=== PATIENT | female | born 1995 | race Caucasian/White ===

== ENCOUNTER 2020-06-20 17:41 | Emergency (ER) | payer BC, OTHER ==
[2020-06-20] MEDS ORDERED: Sodium Chloride 0.9% 10 ML Syringe FLUSH PRN (18:28)
[2020-06-20] MEDS ORDERED: Promethazine 25 MG in Sodium Chloride 0.9% 50 ML IV ONE (18:28)
[2020-06-20] MEDS ORDERED: Sodium Chloride 0.9% 1,000 ML IV STA (18:28)
--- NOTE | 2020-06-20 20:16 | EDM.PDOC ---
ED HPI GENERAL MEDICAL PROBLEM - General Chief Complaint: Gastrointestinal Problem Stated Complaint: 7 WKS PG/VOMITING Time Seen by Provider: 06/20/20 18:15 Source of Information: Reports: Patient, RN Notes Reviewed History Limitations: Reports: No Limitations - History of Present Illness INITIAL COMMENTS - FREE TEXT/NARRATIVE: Patient is a 25-year-old female presenting to the emergency department with complaints of nausea and vomiting. She is 7 weeks . States up until this point she has only had nausea, for which she has been taking Zofran. Last evening she started vomiting with her nausea as well. She took Zofran this morning and states that it did not help. She continued to vomit after the Zofran and states that she has not been able to keep down liquids or foods all day. She called and spoke with Dr. Fierro is her LEAD JAVASCRIPT ENGINEER, Dr. Elena was not in the office. She recommended she come to the ER. She denies any vaginal bleeding or cramping. She has no abdominal pain. Denies any dysuria. - Related Data Allergies Allergy/AdvReac Type Severity Reaction Status Date / Time tree nut Allergy Anaphylactic Verified 06/20/20 17:55 Shock Home Meds: Home Meds Promethazine [Phenergan] 25 mg PO Q6H PRN #15 tab 06/20/20 [Rx] Past Medical History - Past Health History Medical/Surgical History: Denies Medical/Surgical History - Infectious Disease History Infectious Disease History: Reports: None Social & Family History - Tobacco Use Tobacco Use Status *Q: Never Tobacco User ED ROS GENERAL - Review of Systems Review Of Systems: See Below Constitutional: Reports: No Symptoms. Denies: Fever, Chills, Weakness HEENT: Reports: No Symptoms Respiratory: Reports: No Symptoms Cardiovascular: Reports: No Symptoms, Palpitations GI/Abdominal: Reports: Nausea, Vomiting. Denies: Abdominal Pain, Diarrhea : Reports: No Symptoms. Denies: Pain Musculoskeletal: Reports: No Symptoms Skin: Reports: No Symptoms Neurological: Reports: No Symptoms Psychiatric: Reports: No Symptoms Hematologic/Lymphatic: Reports: No Symptoms Immunologic: Reports: No Symptoms ED EXAM, GI/ABD - Physical Exam Exam: See Below General Appearance: Alert, WD/WN, No Apparent Distress Respiratory/Chest: No Respiratory Distress, Lungs Clear, Normal Breath Sounds, No Accessory Muscle Use, Chest Non-Tender Cardiovascular: Normal Peripheral Pulses, Regular Rate, Rhythm, No Edema, No Gallop, No JVD, No Murmur, No Rub GI/Abdominal Exam: Normal Bowel Sounds, Soft, Non-Tender, No Organomegaly, No Distention, No Abnormal Bruit, No Mass, Pelvis Stable Neurological: Alert, Oriented, CN II-XII Intact, Normal Cognition, Normal Gait, Normal Reflexes, No Motor/Sensory Deficits Psychiatric: Normal Affect, Normal Mood Skin Exam: Warm, Dry, Intact, Normal Color, No Rash Course - Vital Signs Last Recorded V/S: Last Vital Signs Temp 97.9 F 06/20/20 17:49 Pulse 105 H 06/20/20 17:49 Resp 16 06/20/20 17:49 BP 133/82 06/20/20 17:49 Pulse Ox 97 06/20/20 17:49 - Orders/Labs/Meds Orders: Active Orders 24 hr Category Date Time Status Peripheral IV Insertion Adult [OM.PC] Stat Oth 06/20/20 18:28 Ordered Labs: Laboratory Tests 06/20/20 06/20/20 06/20/20 Range/Units 18:45 18:45 20:10 WBC 10.28 H (3.98-10.04) K/mm3 RBC 4.44 (3.98-5.22) M/mm3 Hgb 13.2 (11.2-15.7) gm/dl Hct 40.5 (34.1-44.9) % MCV 91.2 (79.4-94.8) fl MCH 29.7 (25.6-32.2) pg MCHC 32.6 (32.2-35.5) g/dl RDW Std Deviation 42.9 (36.4-46.3) fL Plt Count 320 (182-369) K/mm3 MPV 11.0 (9.4-12.3) fl Neut % (Auto) 74.1 H (34.0-71.1) % Lymph % (Auto) 17.1 L (19.3-51.7) % Christian % (Auto) 8.2 (4.7-12.5) % Eos % (Auto) 0.2 L (0.7-5.8) Baso % (Auto) 0.2 (0.1-1.2) % Neut # (Auto) 7.62 H (1.56-6.13) K/mm3 Lymph # (Auto) 1.76 (1.18-3.74) K/mm3 Christian # (Auto) 0.84 H (0.24-0.36) K/mm3 Eos # (Auto) 0.02 L (0.04-0.36) K/mm3 Baso # (Auto) 0.02 (0.01-0.08) K/mm3 Manual Slide Review Normal smear Sodium 136 (136-145) mEq/L Potassium 3.9 (3.5-5.1) mEq/L Chloride 101 (98-107) mEq/L Carbon Dioxide 24 (21-32) mEq/L Anion Gap 14.9 (5-15) BUN 7 (7-18) mg/dL Creatinine 0.9 (0.55-1.02) mg/dL Est Cr Clr Drug Dosing TNP Estimated GFR (MDRD) > 60 (>60) mL/min BUN/Creatinine Ratio 7.8 L (14-18) Glucose 75 (74-106) mg/dL Calcium 9.4 (8.5-10.1) mg/dL Magnesium 1.7 L (1.8-2.4) mg/dl Total Bilirubin 0.6 (0.2-1.0) mg/dL AST 20 (15-37) U/L ALT 30 (14-59) U/L Alkaline Phosphatase 54 (46-116) U/L C-Reactive Protein 0.6 (<1.0) mg/dL Total Protein 7.6 (6.4-8.2) g/dl Albumin 3.7 (3.4-5.0) g/dl Globulin 3.9 gm/dL Albumin/Globulin Ratio 1.0 (1-2) Urine Color Yellow (Yellow) Urine Appearance Cloudy H (Clear) Urine pH 7.0 (5.0-8.0) Ur Specific [place] 1.020 (1.005-1.030) Urine Protein Trace H (Negative) Urine Glucose (UA) Negative (Negative) Urine Ketones 4+ H (Negative) Urine Occult Blood Negative (Negative) Urine Nitrite Negative (Negative) Urine Bilirubin Negative (Negative) Urine Urobilinogen 0.2 (0.2-1.0) Ur Leukocyte Esterase Trace H (Negative) Urine RBC 0-5 (0-5) /hpf Urine WBC 0-5 (0-5) /hpf Ur Squamous Epith Cells 0-5 (0-5) /hpf Amorphous Sediment Many H (NOT SEEN) /hpf Urine Bacteria Few (FEW) /hpf Urine Mucus Not seen (FEW) /hpf Meds: Medications Discontinued Medications Generic Name Dose Route Start Last Admin Trade Name Freq PRN Reason Stop Dose Admin Sodium Chloride 1,000 mls @ 999 mls/hr 06/20/20 18:28 06/20/20 18:50 Normal Saline IV 06/20/20 19:28 999 mls/hr NOW STA Administration Promethazine HCl 25 mg/ Sodium 51 mls @ 100 mls/hr 06/20/20 18:28 06/20/20 18:55 Chloride IV 06/20/20 18:58 100 mls/hr ONETIME ONE Administration Sodium Chloride 10 ml 06/20/20 18:28 06/20/20 18:50 Saline Flush FLUSH 10 ml ASDIRECTED PRN Administration Keep Vein Open - Re-Assessments/Exams Free Text/Narrative Re-Assessment/Exam: Patient is a 25-year-old female 7 weeks presenting to the emergency department with complaints of nausea and vomiting. She had taken Zofran earlier in the day with little relief. Continues to vomiting time she eats or drinks anything. She has had no abnormal vaginal discharge, bleeding, or pelvic pain. Denies any abdominal pain. I have ordered CBC, CMP, and urinalysis. I will give her 1 L bolus of normal saline as well as Phenergan 25 mg IV. We will then have her drink some liquids and see if she is able to keep them down. 06/20/20 20:40 Patient is feeling much better with the medications given. She has been able to drink water with no recurrence of vomiting. Blood work is grossly unremarkable. There is no bacteria in her urine. We will discharge her home with a prescription for Phenergan and instructions to follow-up with her LEAD JAVASCRIPT ENGINEER. Discharge instructions document. Departure - Departure Time of Disposition: 20:41 Disposition: Home, Self-Care 01 Condition: Good Clinical Impression: Nausea and vomiting during - Discharge Information *PRESCRIPTION DRUG MONITORING PROGRAM REVIEWED*: No *COPY OF PRESCRIPTION DRUG MONITORING REPORT IN PATIENT DONTE: No Prescriptions: Promethazine [Phenergan] 25 mg PO Q6H PRN #15 tab PRN Reason: Nausea/Vomiting Instructions: Nausea and Vomiting, Adult, [id number] Referrals: Madelin Elena MD [Primary Care Provider] - Forms: ED Department Discharge Additional Instructions: You were seen in the emergency department today for nausea and vomiting during . Work-up included blood work and urinalysis with both of which were found to be normal. While in the ER, he received a liter of IV fluids and Phenergan for nausea. This did improve your nausea and you were able to drink liquids without difficulty. A prescription for Phen[place]gan has been sent to [facility]. Take this medication as prescribed. Do not take your Zofran at the same time that you are taking this medication. Recommend a bland diet for the next few days. Follow-up with Dr. Elena early next week for reevaluation. Return to the ER for any new or worsening symptoms of concern. Sepsis Event Note (ED) - Evaluation Sepsis Screening Result: No Definite Risk - My Orders Last 24 Hours: My Active Orders 06/20/20 18:28 Peripheral IV Insertion Adult [OM.PC] Stat - Assessment/Plan Last 24 Hours: My Active Orders 06/20/20 18:28 Peripheral IV Insertion Adult [OM.PC] Stat
== END 2020-06-20 21:05 | disposition home or self-care (01) ==
LOC: JD.ED 17:41
DX: O21.9 Vomiting of pregnancy, unspecified (principal); Z91.018 Allergy to other foods; Z3A.01 Less than 8 weeks gestation of pregnancy
CPT/HCPCS: 36415; 80053; 81001; 83735; 85025; 86140; 96365; 99284; J2550; J7030; 99283

== ENCOUNTER 2020-07-19 09:17 | Emergency (ER) | payer BC ==
[2020-07-19] MEDS ORDERED: Promethazine 25 MG in Sodium Chloride 0.9% 50 ML IV ONE (11:10)
[2020-07-19] MEDS ORDERED: Dextrose 5%-0.9% NaCl 1,000 ML IV SCH (11:11)
--- NOTE | 2020-07-19 11:15 | EDM.PDOC ---
ED HPI GENERAL MEDICAL PROBLEM - General Chief Complaint: Gastrointestinal Problem Stated Complaint: VOMITING/11 WKS PG Time Seen by Provider: 07/19/20 11:06 Source of Information: Reports: Patient, RN Notes Reviewed History Limitations: Reports: No Limitations - History of Present Illness INITIAL COMMENTS - FREE TEXT/NARRATIVE: Patient is a 25-year-old female who presents to the ED for evaluation of her vomiting in . She notes she is roughly 11-1/2 weeks , she is a G1, P0. Her DUAL RATE SUPERVISOR is Dr. Elena. She notes that she has been having issues with nausea and vomiting with this , she has been tried on Zofran, and Phenergan, she states that she has not been taking her Phenergan in a while as she has had a few days that where she felt really good. Since Tuesday however in the morning she has not been able to keep any food or fluids down by mouth. She was seen at [facility] roughly 4 days ago and given some IV fluids. She notes she has some generalized abdomen tenderness but attributes this to her excessive vomiting. She does not have any fevers or chills, cough or shortness of breath, or any diarrhea associated with this. Abdomen Pain Score (Numeric/FACES): 4 - Related Data Allergies Allergy/AdvReac Type Severity Reaction Status Date / Time tree nut Allergy Anaphylactic Verified 07/19/20 10:09 Shock Home Meds: Home Meds Promethazine [Phenergan] 25 mg PO Q6H PRN #15 tab 06/20/20 [Rx] Past Medical History DUAL RATE SUPERVISOR History: Reports: : 1 Para: 0 - Past Surgical History HEENT Surgical History: Reports: Oral Surgery Social & Family History - Tobacco Use Tobacco Use Status *Q: Never Tobacco User - Caffeine Use Caffeine Use: Reports: None - Recreational Drug Use Recreational Drug Use: No ED ROS GENERAL - Review of Systems Review Of Systems: Comprehensive ROS is negative, except as noted in HPI. ED EXAM - Physical Exam Exam: See Below Exam Limited By: No Limitations General Appearance: Alert, WD/WN, No Apparent Distress Respiratory/Chest: No Respiratory Distress, Lungs Clear, Normal Breath Sounds, No Accessory Muscle Use, Chest Non-Tender Cardiovascular: Normal Peripheral Pulses, Regular Rate, Rhythm, No Edema GI/Abdominal Exam: Normal Bowel Sounds, Soft, Non-Tender, No Distention, No Mass Heart Tones: Not [place] Movement: Not Appreciated Extremities: Normal Inspection, Normal Capillary Refill Neurological: Alert, Oriented, Normal Cognition, No Motor/Sensory Deficits Psychiatric: Normal Affect, Normal Mood Skin Exam: Warm, Dry, Intact, Normal Color, No Rash Course - Vital Signs Last Recorded V/S: Last Vital Signs Temp 97.4 F 07/19/20 10:09 Pulse 112 H 07/19/20 10:09 Resp 13 07/19/20 10:09 BP 115/78 07/19/20 10:09 Pulse Ox 100 07/19/20 10:09 - Orders/Labs/Meds Orders: Active Orders 24 hr Category Date Time Status Dextrose 5%-0.9% NaCl [Dextrose 5%-Normal Saline] 1,000 Med 07/19/20 11:11 Active ml IV ASDIRECTED Medication Orders Dextrose/Sodium Chloride (Dextrose 5%-Normal Saline) 1,000 mls @ 999 mls/hr IV ASDIRECTED DEJAH Last Admin: 07/19/20 11:22 Dose: 999 mls/hr Documented by: MATT Meds: Medications Generic Name Dose Route Start Last Admin Trade Name Freq PRN Reason Stop Dose Admin Dextrose/Sodium Chloride 1,000 mls @ 999 mls/hr 07/19/20 11:11 07/19/20 11:22 Dextrose 5%-Normal Saline IV 999 mls/hr ASDIRECTED [facility] Administration Discontinued Medications Generic Name Dose Route Start Last Admin Trade Name Freq PRN Reason Stop Dose Admin Promethazine HCl 25 mg/ Sodium 51 mls @ 100 mls/hr 07/19/20 11:10 07/19/20 11:27 Chloride IV 07/19/20 11:40 100 mls/hr ONETIME ONE Administration - Re-Assessments/Exams Free Text/Narrative Re-Assessment/Exam: 07/19/20 11:13 Patient presents to the ED with her and vomiting, likely suffering from hyperemesis gravidarum. We will get her some IV fluids, and nausea meds she states that she had labs taken on Tuesday, so she would not like labs repeated at today's visit. I did caution her that she could be overly dehydrated and this would help, she understands this but would really not like labs repeated at this time. Patient still has moist mucous membranes, and her blood pressure was good at time of triage so we will hold off on labs. 07/19/20 12:11 The patient is feeling better after the fluids and Phenergan, we will discharge her home after her bag of fluids has been completed. Departure - Departure Time of Disposition: 12:12 Disposition: Home, Self-Care 01 Condition: Good Clinical Impression: Nausea and vomiting during - Discharge Information *PRESCRIPTION DRUG MONITORING PROGRAM REVIEWED*: No *COPY OF PRESCRIPTION DRUG MONITORING REPORT IN PATIENT DONTE: No Instructions: Hyperemesis Gravidarum Referrals: Madelin Elena MD [Primary Care Provider] - Forms: ED Department Discharge Additional Instructions: You were seen in the ER for your nausea and vomiting in . You were given IV fluids, and some IV medications, this seemed to help relieve most of your nausea and vomiting. You reported that you felt better after the bag of fluids. Recommend that you take your Phenergan (promethazine) as directed by your DUAL RATE SUPERVISOR, on a daily basis until your nausea gets better. Please consult with Dr. Elena, if you are not able to take the pill version of this medication as there is a topical version you can use on your wrists for nausea management. If this makes you too sleepy, there are other options for nausea control. Recommend you try to stick to a clear liquid/bland diet for the next 24 to 48 hours and then advance your diet as tolerated, to also help relieve some of the nausea and vomiting. Please follow-up with your DUAL RATE SUPERVISOR at your next scheduled appointment. Please return to the ER at any time if symptoms change or worsen. Sepsis Event Note (ED) - Evaluation Sepsis Screening Result: No Definite Risk - Focused Exam Vital Signs: Vital Signs Temp Pulse Resp BP Pulse Ox 07/19/20 10:09 97.4 F 112 H 13 115/78 100 - My Orders Last 24 Hours: My Active Orders 07/19/20 11:11 Dextrose 5%-0.9% NaCl [Dextrose 5%-Normal Saline] 1,000 ml IV ASDIRECTED - Assessment/Plan Last 24 Hours: My Active Orders 07/19/20 11:11 Dextrose 5%-0.9% NaCl [Dextrose 5%-Normal Saline] 1,000 ml IV ASDIRECTED
== END 2020-07-19 13:15 | disposition home or self-care (01) ==
LOC: JD.ED 09:17
DX: O21.9 Vomiting of pregnancy, unspecified (principal); Z3A.11 11 weeks gestation of pregnancy; Z91.018 Allergy to other foods
CPT/HCPCS: 96365; 99283; J2550; J7042

== ENCOUNTER 2021-02-03 02:57 | Inpatient (IN) | payer BC ==
[2021-02-03] MEDS ORDERED: Nalbuphine 10 MG/1 ML Vial IVPUSH PRN (03:27)
[2021-02-03] MEDS ORDERED: Sodium Chloride 0.9% 10 ML Syringe FLUSH PRN (03:27)
[2021-02-03] MEDS ORDERED: Oxytocin/Lactated Ringers 10 UNIT/1,000 ML BAG IV SCH ×2 (03:30→14:30)
--- NOTE | 2021-02-03 03:30 | PCM.LDHP ---
L&D History of Present Illness - General Date of Service: 02/03/21 Admit Problem/Dx: Patient Status Order with Admit Dx/Problem 02/03/21 03:27 Patient Status [ADT] Routine Admission Diagnosis/Problem Admission Diagnosis/Problem Normal labor Source of Information: Patient History Limitations: Reports: No Limitations - History of Present Illness Introduction:: Patient is a 25 y/o at 39 6/7 wks who presents in labor. Contractions started early in the AM hours. 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: Polycystic Ovaries, : 1 Para: 0 LMP (Approximate): Psychiatric History: Reports: Anxiety - Past Surgical History HEENT Surgical History: Reports: Oral Surgery Social & Family History - Tobacco Use Tobacco Use Status *Q: Never Tobacco User - Caffeine Use Caffeine Use: Reports: None - Alcohol Use Alcohol Use History: No - Recreational Drug Use Recreational Drug Use: No H&P Review of Systems - Review of Systems: Review Of Systems: See Below General: Reports: No Symptoms Pulmonary: Reports: No Symptoms Cardiovascular: Reports: No Symptoms Gastrointestinal: Reports: Abdominal Pain Genitourinary: Reports: No Symptoms Musculoskeletal: Reports: No Symptoms Psychiatric: Reports: No Symptoms Neurological: Reports: No Symptoms L&D Exam - Exam Exam: See Below - OB Specific Contraction Intensity: Moderate to Strong Movement: Active Heart Tones: Present Heart Tones per Min: 120 Heart Rate (FHR) Variability: Moderate (6-25 bpm) Presentation: Vertex - Mcpherson Score Mcpherson Score Cervix Position: Anterior Mcpherson Score Consistency: Soft Mcpherson Score Effacement: >80% Mcpherson Score Dilation: > 5 cm Mcpherson Score 's Station: -1 ,0 Mcpherson Score Total: 12 - Exam General: Alert, Oriented, Cooperative Lungs: Clear to Auscultation, Normal Respiratory Effort Cardiovascular: Regular Rate, Regular Rhythm GI/Abdominal Exam: Soft, Non-Tender Genitourinary: Normal external exam Extremities: Normal Inspection Skin: Warm, Dry, Intact - Patient Data Result Diagrams: 02/03/21 04:10 - Problem List (1) 39 weeks gestation of SNOMED Code(s): 12925194 ICD Code: Z3A.39 - 39 WEEKS GESTATION OF Status: Acute Current Visit: Yes (2) Normal labor SNOMED Code(s): 44119160 ICD Code: O80 - ENCOUNTER FOR FULL-TERM UNCOMPLICATED DELIVERY; Z37.9 - OUTCOME OF DELIVERY, UNSPECIFIED Status: Acute Current Visit: Yes Problem List Initiated/Reviewed/Updated: Yes Orders Last 24hrs: Active Orders 24 hr Category Date Time Status Patient Status [ADT] Routine ADT 02/03/21 03:27 Ordered Activity as Tolerated [RC] PFP Care 02/03/21 03:27 Ordered Communication Order [RC] ASDIRECTED Care 02/03/21 03:27 Ordered Heart Tones [RC] ASDIRECTED Care 02/03/21 03:27 Ordered Non Stress Test [RC] PER UNIT ROUTINE Care 02/03/21 03:27 Ordered Notify Provider [RC] PFP Care 02/03/21 03:27 Ordered Notify Provider [RC] PRN Care 02/03/21 03:27 Ordered Peripheral IV Care [RC] . DIRECTED Care 02/03/21 03:27 Ordered Vital Signs [RC] PER UNIT ROUTINE Care 02/03/21 03:27 Ordered Regular Diet [DIET] Diet 02/03/21 Breakfast Ordered CBC W/O DIFF,HEMOGRAM [HEME] Routine Lab 02/03/21 03:27 Ordered CORONAVIRUS COVID-19 VAISHALI [MOLEC] Stat Lab 02/03/21 03:28 Ordered HEP C VIRUS AB [REF] Routine Lab 02/03/21 03:27 Ordered RAPID PLASMA REAGIN,RPR [CHEM] Routine Lab 02/03/21 03:27 Ordered TYPE AND SCREEN [BBK] Routine Lab 02/03/21 03:27 Ordered Lactated Ringers [Ringers, Lactated] 1,000 ml Med 02/03/21 03:30 Ordered IV ASDIRECTED Nalbuphine [Nubain] Med 02/03/21 03:27 Ordered 10 mg IVPUSH Q2H PRN Ondansetron [Zofran] Med 02/03/21 03:27 Ordered 4 mg IVPUSH Q4H PRN Oxytocin/Lactated Ringers [Pitocin in LR 10 Units/1,000 Med 02/03/21 03:30 Ordered ML] 10 unit in 1,000 ml IV .CONTINUOUS Sodium Chloride 0.9% [Saline Flush] Med 02/03/21 03:27 Ordered 10 ml FLUSH ASDIRECTED PRN Electronic Heart Tones Ext w TOCO [WOMSER] Oth 02/03/21 03:27 Ordered Routine Electronic Heart Tones Internal [WOMSER] Per Unit Ot 02/03/21 03:27 Ordered Routine Peripheral IV Insertion Adult [OM.PC] Routine Oth 02/03/21 03:27 Ordered Resuscitation Status Routine Resus Stat 02/03/21 03:27 Ordered Assessment/Plan Comment:: * Labs to be done * GBS negative * Pain management per patient preference * Anticipate
[2021-02-03] MEDS: Ondansetron 4 MG/2 ML SDV IVPUSH PRN ×2 (04:23→08:28)
[2021-02-03] MEDS: Lactated Ringers 1,000 ML IV SCH ×3 (09:00→10:31)
[2021-02-03] MEDS ORDERED: ePHEDrine 50 MG/ML SDV IVPUSH PRN (09:13)
[2021-02-03] MEDS ORDERED: Bupivacaine/fentaNYL/NS 100 ML Bag EPIDUR PRN (09:13)
[2021-02-03] MEDS ORDERED: fentaNYL 100 MCG/2 ML SDV EPIDUR PRN (09:13)
[2021-02-03] MEDS ORDERED: diphenhydrAMINE 50 MG/ML SDV IVPUSH PRN (09:13)
--- NOTE | 2021-02-03 09:17 | PCM.PREANE ---
Preanesthetic Assessment - Procedure Proposed Procedure: Labor epidural - Anesthesia/Transfusion/Family Hx Anesthesia History: Prior Anesthesia Reaction Type of Anesthesia Reaction: Excessive Nausea/Vomiting Family History of Anesthesia Reaction: No Transfusion History: No Prior Transfusion(s) Intubation History: Unknown - Review of Systems General: No Symptoms Pulmonary: No Symptoms Cardiovascular: No Symptoms Gastrointestinal: Abdominal Pain (uterine contractons), Nausea, Vomiting Neurological: No Symptoms Other: Reports: Liver Problems (hyperplasia of liver) - Physical Assessment NPO Status Date: 02/03/21 NPO Status Time: 07:00 Vital Signs: Last Vital Signs Temp 98.2 F 02/03/21 03:27 Pulse 119 H 02/03/21 03:27 Resp 14 02/03/21 03:27 BP 121/84 02/03/21 03:27 Pulse Ox 99 02/03/21 03:27 Height: 1.75 m Weight: 84.323 kg ASA Class: 2 Mental Status: Alert & Oriented x3 Airway Class: Mallampati = 2 Dentition: Reports: Normal Dentition, Caries Thyro-Mental Finger Breadths: 3 Mouth Opening Finger Breadths: 3 ROM/Head Extension: Full Lungs: Clear to Auscultation, Normal Respiratory Effort Cardiovascular: Regular Rate, Regular Rhythm - Lab Values: Laboratory Last Values WBC 14.11 K/mm3 (3.98-10.04) H 02/03/21 04:10 RBC 3.80 M/mm3 (3.98-5.22) L 02/03/21 04:10 Hgb 11.4 gm/dl (11.2-15.7) D 02/03/21 04:10 Hct 34.8 % (34.1-44.9) 02/03/21 04:10 MCV 91.6 fl (79.4-94.8) 02/03/21 04:10 MCH 30.0 pg (25.6-32.2) 02/03/21 04:10 MCHC 32.8 g/dl (32.2-35.5) 02/03/21 04:10 RDW Std Deviation 46.7 fL (36.4-46.3) H 02/03/21 04:10 Plt Count 358 K/mm3 (182-369) 02/03/21 04:10 MPV 10.7 fl (9.4-12.3) 02/03/21 04:10 SARS-CoV-2 RNA (VAISHALI) Negative (NEGATIVE) 02/03/21 03:36 Blood Type O POSITIVE 02/03/21 04:10 Gel Antibody Screen Negative 02/03/21 04:10 - Allergies Allergies/Adverse Reactions: Allergies Allergy/AdvReac Type Severity Reaction Status Date / Time peanut Allergy Anaphylactic Verified 02/03/21 04:48 Shock tree nut Allergy Anaphylactic Verified 02/03/21 04:48 Shock - Blood Blood Available: No Product(s) Available: None - Anesthesia Plan Pre-Op Medication Ordered: None - Acknowledgements Anesthesia Type Planned: Epidural Pt an Appropriate Candidate for the Planned Anesthesia: Yes Alternatives and Risks of Anesthesia Discussed w Pt/Guardian: Yes Pt/Guardian Understands and Agrees with Anesthesia Plan: Yes PreAnesthesia Questionnaire - Past Health History Medical/Surgical History: Denies Medical/Surgical History Gastrointestinal History: Reports: GERD, Other (See Below) Other Gastrointestinal History: Gallbladder polyp, Focal nodular hyperplasia of liver 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: 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, Psychiatric History: Reports: Anxiety Hematologic History: Reports: Anemia - Infectious Disease History Infectious Disease History: Reports: None - Past Surgical History HEENT Surgical History: Reports: Oral Surgery - SUBSTANCE USE Tobacco Use Status *Q: Never Tobacco User Tobacco Use Within Last Twelve Months: No Second Hand Smoke Exposure: No Days Per Week of Alcohol Use: 0 Number of Drinks Per Day: 0 Total Drinks Per Week: 0 Recreational Drug Use History: No - HOME MEDS Home Medications: Home Meds Ferrous Sulfate [Iron] 325 mg PO DAILY 02/03/21 [History] No122/Iron/Folic Acid [ Multi Tablet] 1 each PO DAILY 02/03/21 [History] - CURRENT (IN HOUSE) MEDS Current Meds: Current Medications Oxytocin/Lactated Ringer's (Pitocin In Lr 10 Units/1,000 Ml) 10 unit in 1,000 mls @ 500 mls/hr IV .CONTINUOUS DEJAH Lactated Ringer's (Ringers, Lactated) 1,000 mls @ 100 mls/hr IV ASDIRECTED DEJAH Nalbuphine HCl (Nalbuphine 10 Mg/1 Ml Vial) 10 mg IVPUSH Q2H PRN PRN Reason: Pain Ondansetron HCl (Ondansetron 4 Mg/2 Ml Sdv) 4 mg IVPUSH Q4H PRN PRN Reason: Nausea/Vomiting Last Admin: 02/03/21 08:28 Dose: 4 mg Documented by: Sodium Chloride (Sodium Chloride 0.9% 10 Ml Syringe) 10 ml FLUSH ASDIRECTED PRN PRN Reason: Keep Vein Open
[2021-02-03] MEDS ORDERED: Bupivacaine 0.25% 10 ML SDV ONE (12:00)
[2021-02-03] MEDS ORDERED: Misoprostol 200 MCG Tab ONE (15:38)
--- NOTE | 2021-02-03 16:56 | PCM.DEL ---
L & D Note - General Info Date of Service: 02/03/21 - Delivery Note Labor: Spontaneous Delivery Outcome: Livebirth Delivery Method: Spontaneous Vaginal Delivery-Single Delivery Mode: Spontaneous Presentation: Left Occiput Anterior (JUNI) Nuchal Cord: Present (tight not reduced ) Anesthesia Type: Epidural Amniotic Fluid Description: Clear Episiotomy Type: None Laceration: 2nd Degree Suture type: Vicryl Suture size: 2-0 Placenta: Intact (Accessory lobe noted ), Spontaneous Estimated Blood Loss: 300 [place]: Bulb Syringe, Stimulated, Warmed, [place] Used Delivery Comments (Free Text/Narrative):: Patient found to be complete and began pushing. With maternal pushing effort head delivered from JUNI presentation. Tight nuchal present and so not reduced. With gentle downward traction shoulders and body delivered. Infant placed on maternal abdomen. Cord clamped and cut. Cord blood obtained. Placenta allowed time to separate and expelled intact. Inspection showed accessory lobe. Evaluation of perineum showed a 2nd degree laceration repaired with a 2-0 Vicryl - General Info Date of Service: 02/03/21 - Patient Data Vitals - Most Recent: Last Vital Signs Temp 36.8 C 02/03/21 03:27 Pulse 119 H 02/03/21 03:27 Resp 14 02/03/21 03:27 BP 121/84 02/03/21 03:27 Pulse Ox 99 02/03/21 03:27 Weight - Most Recent: 84.323 kg I&O - Last 24 Hours: Intake & Output 02/03/21 02/03/21 02/03/21 06:59 14:59 22:59 Intake Total 240 Balance 240 - Exam Urinary Catheter Total Time: 0Days 0Hours - Problem List & Annotations (1) 39 weeks gestation of SNOMED Code(s): 03737640 Code(s): Z3A.39 - 39 WEEKS GESTATION OF Status: Acute Current Visit: Yes (2) Normal labor SNOMED Code(s): 18914832 Code(s): O80 - ENCOUNTER FOR FULL-TERM UNCOMPLICATED DELIVERY; Z37.9 - OUTCOME OF DELIVERY, UNSPECIFIED Status: Acute Current Visit: Yes (3) Vaginal delivery SNOMED Code(s): 491360411 Code(s): O80 - ENCOUNTER FOR FULL-TERM UNCOMPLICATED DELIVERY Status: Acute Current Visit: Yes - Problem List Review Problem List Initiated/Reviewed/Updated: Yes - My Orders Last 24 Hours: My Active Orders 02/03/21 03:27 Patient Status [ADT] Routine Activity as Tolerated [RC] PFP Communication Order [RC] ASDIRECTED Notify Provider [RC] PFP Notify Provider [RC] PRN Nalbuphine [Nubain] 10 mg IVPUSH Q2H PRN Ondansetron [Zofran] 4 mg IVPUSH Q4H PRN Sodium Chloride 0.9% [Saline Flush] 10 ml FLUSH ASDIRECTED PRN Electronic Heart Tones Ext w TOCO [WOMSER] Routine Electronic Heart Tones Internal [WOMSER] Per Unit Routine Peripheral IV Insertion Adult [OM.PC] Routine Resuscitation Status Routine 02/03/21 03:30 Lactated Ringers [Ringers, Lactated] 1,000 ml IV ASDIRECTED Oxytocin/Lactated Ringers [Pitocin in LR 10 Units/1,000 ML] 10 unit in 1,000 ml IV .CONTINUOUS 02/03/21 04:10 HEP C VIRUS AB [REF] Routine RAPID PLASMA REAGIN,RPR [CHEM] Routine 02/03/21 Breakfast Regular Diet [DIET] 02/03/21 14:30 Oxytocin/Lactated Ringers [Pitocin in LR 10 Units/1,000 ML] 10 unit in 1,000 ml IV TITRATE 02/03/21 16:55 Patient Status Manage Transfer [TRANSFER] Routine - Assessment Assessment:: PPD#0 - Plan Plan:: * Routine cares * breast feeding * Discharge home in 1-2 days
[2021-02-03] MEDS ORDERED: Acetaminophen 325 MG Tab PO PRN (17:33)
[2021-02-03] MEDS ORDERED: Witch Hazel Medicated Pads 40/Jar TOP PRN (17:33)
[2021-02-03] MEDS ORDERED: Benzocaine/Menthol 20%-0.5% Spray 56 GM Canister TOP PRN (17:33)
[2021-02-03] MEDS: Ibuprofen 600 MG Tab PO PRN (18:55)
[2021-02-04] MEDS: Ibuprofen 600 MG Tab PO PRN ×3 (03:57→18:52)
--- NOTE | 2021-02-04 06:29 | PCM.PNPP ---
- General Info Date of Service: 02/04/21 Functional Status: Reports: Pain Controlled, Tolerating Diet, Ambulating, Urinating - Review of Systems General: Reports: No Symptoms Pulmonary: Reports: No Symptoms Cardiovascular: Reports: No Symptoms Gastrointestinal: Reports: No Symptoms Genitourinary: Reports: No Symptoms Musculoskeletal: Reports: No Symptoms - Patient Data Vital Signs - Most Recent: Last Vital Signs Temp 36.6 C 02/04/21 03:57 Pulse 85 02/04/21 03:57 Resp 14 02/03/21 19:49 BP 112/65 02/04/21 03:57 Pulse Ox 97 02/04/21 03:57 Weight - Most Recent: 84.323 kg I&O - Last 24 Hours: Intake & Output 02/03/21 02/03/21 02/04/21 14:59 22:59 06:59 Intake Total 240 3300 Output Total 325 300 Balance -85 3000 Lab Results - Last 24 Hours: Laboratory Results - last 24 hr 02/03/21 Range/Units 04:10 RPR Non-reactive (NONREACTIVE) Med Orders - Current: Current Medications Acetaminophen (Acetaminophen 325 Mg Tab) 650 mg PO Q4H PRN PRN Reason: mild pain or fever Benzocaine/Menthol (Benzocaine/Menthol 20%-0.5% [place] 56 Gm Canister) 0 gm TOP ASDIRECTED PRN PRN Reason: Perineal Comfort Measure Last Admin: 02/03/21 17:58 Dose: 1 canister Documented by: Docusate Sodium (Docusate Sodium 100 Mg Cap) 100 mg PO BID PRN PRN Reason: Constipation Ibuprofen (Ibuprofen 600 Mg Tab) 600 mg PO Q4H PRN PRN Reason: Mild pain or fever Last Admin: 02/04/21 03:57 Dose: 600 mg Documented by: Иван Carey (Иван Carey Medicated Pads 40/Jar) 1 pad TOP ASDIRECTED PRN PRN Reason: Perineal Comfort Measure Last Admin: 02/03/21 17:58 Dose: 1 container Documented by: Discontinued Medications Bupivacaine HCl (Bupivacaine 0.25% 10 Ml Sdv) 10 ml .ROUTE .STK-MED ONE Stop: 02/03/21 12:01 Diphenhydramine HCl (Diphenhydramine 50 Mg/Ml Sdv) 25 mg IVPUSH Q6H PRN PRN Reason: pruritis Ephedrine Sulfate (Ephedrine 50 Mg/Ml Sdv) 5 mg IVPUSH ASDIRECTED PRN PRN Reason: Hypotension Fentanyl (Fentanyl 100 Mcg/2 Ml Sdv) 100 mcg EPIDUR Q3H PRN PRN Reason: Pain Last Admin: 02/03/21 09:19 Dose: 100 mcg Documented by: Fentanyl/Bupivacaine HCl (Bupivacaine/Fentanyl/Ns 100 Ml Bag) 100 ml EPIDUR ASDIRECTED PRN PRN Reason: Pain Last Admin: 02/03/21 09:18 Dose: 100 ml Documented by: Oxytocin/Lactated Ringer's (Pitocin In Lr 10 Units/1,000 Ml) 10 unit in 1,000 mls @ 500 mls/hr IV .CONTINUOUS DJEAH Lactated Ringer's (Ringers, Lactated) 1,000 mls @ 100 mls/hr IV ASDIRECTED DEJAH Last Admin: 02/03/21 10:31 Dose: 100 mls/hr Documented by: Oxytocin/Lactated Ringer's (Pitocin In Lr 10 Units/1,000 Ml) 10 unit in 1,000 mls @ 12 mls/hr IV TITRATE DEJAH; Protocol Last Admin: 02/03/21 14:32 Dose: 2 munits/min, 12 mls/hr Documented by: Misoprostol (Misoprostol 200 Mcg Tab) Confirm Administered Dose 600 mcg .ROUTE .[facility]-MED ONE Stop: 02/03/21 15:39 Last Admin: 02/03/21 15:38 Dose: 600 mcg Documented by: Nalbuphine HCl (Nalbuphine 10 Mg/1 Ml Vial) 10 mg IVPUSH Q2H PRN PRN Reason: Pain Ondansetron HCl (Ondansetron 4 Mg/2 Ml Sdv) 4 mg IVPUSH Q4H PRN PRN Reason: Nausea/Vomiting Last Admin: 02/03/21 08:28 Dose: 4 mg Documented by: Sodium Chloride (Sodium Chloride 0.9% 10 Ml Syringe) 10 ml FLUSH ASDIRECTED PRN PRN Reason: Keep Vein Open - Interaction Infant Disposition, : in Room with Family Interaction: Holding Infant Infant Feeding: Attempted ; Nursed Fair/Poor Support Person: , Mother - Recovery Exam Fundal Tone: Firm Fundal Level: 1 Fingerbreadths Below Umbilicus Fundal Placement: Midline Lochia Amount: Small Lochia Color: Rubra/Red Perineum Description: Other (see below) Other Perinuem Description: 2nd degree with degree Bladder Status: Voiding - Exam General: Alert, Oriented, Cooperative GI/Abdominal Exam: Soft, Non-Tender - Problem List & Annotations (1) 39 weeks gestation of SNOMED Code(s): 55747926 Code(s): Z3A.39 - 39 WEEKS GESTATION OF Status: Acute Current Visit: Yes (2) Normal labor SNOMED Code(s): 79638356 Code(s): O80 - ENCOUNTER FOR FULL-TERM UNCOMPLICATED DELIVERY; Z37.9 - OUTCOME OF DELIVERY, UNSPECIFIED Status: Acute Current Visit: Yes (3) Vaginal delivery SNOMED Code(s): 662671041 Code(s): O80 - ENCOUNTER FOR FULL-TERM UNCOMPLICATED DELIVERY Status: Acute Current Visit: Yes - Problem List Review Problem List Initiated/Reviewed/Updated: Yes - My Orders Last 24 Hours: My Active Orders 02/03/21 Dinner Regular Diet [DIET] 02/03/21 17:33 Acetaminophen [TylenoL] 650 mg PO Q4H PRN Benzocaine/Menthol [Dermoplast Pain Relief [place]] See Dose Instructions TOP ASDIRECTED PRN Docusate Sodium [Colace] 100 mg PO BID PRN Ibuprofen [Motrin] 600 mg PO Q4H PRN witch Jie [Tucks] 1 pad TOP ASDIRECTED PRN Heat Therapy [OM.PC] PRN 02/03/21 17:33 Activity as Tolerated [RC] PER UNIT ROUTINE Vital Signs [RC] 03,,15,21 Assess Lochia [WOMSER] Per Unit Routine Assess Uterine Involution [WOMSER] Per Unit Routine Breast Pump [WOMSER] Per Unit Routine Ice Therapy [OM.PC] Per Unit Routine Perineal Care [OM.PC] Per Unit Routine Peripheral IV Discontinue [OM.PC] Routine Sitz Bath [OM.PC] Per Unit Routine 02/04/21 17:33 Heat Therapy [OM.PC] PRN - Assessment Assessment:: PPD#1 - Plan Plan:: * Routine cares * breast feeding * Discharge home tomorrow
--- NOTE | 2021-02-04 07:29 | PCM48HPAN ---
Post Anesthesia Note - EVALUATION WITHIN 48HRS OF ANESTHETIC Vital Signs in Normal Range: Yes Patient Participated in Evaluation: Yes Respiratory Function Stable: Yes Airway Patent: Yes Cardiovascular Function Stable: Yes Hydration Status Stable: Yes Pain Control Satisfactory: Yes Nausea and Vomiting Control Satisfactory: Yes Mental Status Recovered: Yes Vital Signs: Last Vital Signs Temp 97.9 F 02/04/21 03:57 Pulse 85 02/04/21 03:57 Resp 14 02/03/21 19:49 BP 112/65 02/04/21 03:57 Pulse Ox 97 02/04/21 03:57 - COMMENTS/OBSERVATIONS Free Text/Narrative:: resting. no complaints
[2021-02-04] MEDS: Docusate Sodium 100 MG Cap PO PRN (18:52)
[2021-02-05] MEDS: Ibuprofen 600 MG Tab PO PRN (06:49)
--- NOTE | 2021-02-05 07:28 | PCM.PNPP ---
- General Info Date of Service: 02/05/21 Functional Status: Reports: Pain Controlled, Tolerating Diet, Ambulating, Urinating - Review of Systems General: Reports: No Symptoms Pulmonary: Reports: No Symptoms Cardiovascular: Reports: No Symptoms Gastrointestinal: Reports: No Symptoms Genitourinary: Reports: No Symptoms Musculoskeletal: Reports: No Symptoms - Patient Data Vital Signs - Most Recent: Last Vital Signs Temp 36.6 C 02/05/21 01:58 Pulse 87 02/05/21 01:58 Resp 14 02/05/21 01:58 BP 112/65 02/05/21 01:58 Pulse Ox 95 02/05/21 01:58 Weight - Most Recent: 84.323 kg Lab Results - Last 24 Hours: Laboratory Results - last 24 hr 02/03/21 Range/Units 04:10 Hepatitis C Antibody <0.1 (0.0-0.9) s/co ratio Med Orders - Current: Current Medications Acetaminophen (Acetaminophen 325 Mg Tab) 650 mg PO Q4H PRN PRN Reason: mild pain or fever Benzocaine/Menthol (Benzocaine/Menthol 20%-0.5% [place] 56 Gm Canister) 0 gm TOP ASDIRECTED PRN PRN Reason: Perineal Comfort Measure Last Admin: 02/03/21 17:58 Dose: 1 canister Documented by: Docusate Sodium (Docusate Sodium 100 Mg Cap) 100 mg PO BID PRN PRN Reason: Constipation Last Admin: 02/04/21 18:52 Dose: 100 mg Documented by: Ibuprofen (Ibuprofen 600 Mg Tab) 600 mg PO Q4H PRN PRN Reason: Mild pain or fever Last Admin: 02/05/21 06:49 Dose: 600 mg Documented by: Иван Carey (Иван Carey Medicated Pads 40/Jar) 1 pad TOP ASDIRECTED PRN PRN Reason: Perineal Comfort Measure Last Admin: 02/03/21 17:58 Dose: 1 container Documented by: Discontinued Medications Bupivacaine HCl (Bupivacaine 0.25% 10 Ml Sdv) 10 ml .ROUTE .STK-MED ONE Stop: 02/03/21 12:01 Diphenhydramine HCl (Diphenhydramine 50 Mg/Ml Sdv) 25 mg IVPUSH Q6H PRN PRN Reason: pruritis Ephedrine Sulfate (Ephedrine 50 Mg/Ml Sdv) 5 mg IVPUSH ASDIRECTED PRN PRN Reason: Hypotension Fentanyl (Fentanyl 100 Mcg/2 Ml Sdv) 100 mcg EPIDUR Q3H PRN PRN Reason: Pain Last Admin: 02/03/21 09:19 Dose: 100 mcg Documented by: Fentanyl/Bupivacaine HCl (Bupivacaine/Fentanyl/Ns 100 Ml Bag) 100 ml EPIDUR ASDIRECTED PRN PRN Reason: Pain Last Admin: 02/03/21 09:18 Dose: 100 ml Documented by: Oxytocin/Lactated Ringer's (Pitocin In Lr 10 Units/1,000 Ml) 10 unit in 1,000 mls @ 500 mls/hr IV .CONTINUOUS DEJAH Lactated Ringer's (Ringers, Lactated) 1,000 mls @ 100 mls/hr IV ASDIRECTED DEJAH Last Admin: 02/03/21 10:31 Dose: 100 mls/hr Documented by: Oxytocin/Lactated Ringer's (Pitocin In Lr 10 Units/1,000 Ml) 10 unit in 1,000 mls @ 12 mls/hr IV TITRATE DEJAH; Protocol Last Admin: 02/03/21 14:32 Dose: 2 munits/min, 12 mls/hr Documented by: Misoprostol (Misoprostol 200 Mcg Tab) Confirm Administered Dose 600 mcg .ROUTE .[facility] ONE Stop: 02/03/21 15:39 Last Admin: 02/03/21 15:38 Dose: 600 mcg Documented by: Nalbuphine HCl (Nalbuphine 10 Mg/1 Ml Vial) 10 mg IVPUSH Q2H PRN PRN Reason: Pain Ondansetron HCl (Ondansetron 4 Mg/2 Ml Sdv) 4 mg IVPUSH Q4H PRN PRN Reason: Nausea/Vomiting Last Admin: 02/03/21 08:28 Dose: 4 mg Documented by: Sodium Chloride (Sodium Chloride 0.9% 10 Ml Syringe) 10 ml FLUSH ASDIRECTED PRN PRN Reason: Keep Vein Open - Interaction Disposition, : Docena in Room with Family Infant Interaction: Holding Feeding: Attempted ; Nursed Fair/Poor Support Person: , Mother - Recovery Exam Fundal Tone: Firm Fundal Level: 2 Fingerbreadths Below Umbilicus Fundal Placement: Midline Lochia Amount: Small Lochia Color: Rubra/Red Perineum Description: Other (see below) Other Perinuem Description: 2nd degree lac with repair Episiotomy/Laceration: Approximated Bladder Status: Voiding - Exam General: Alert, Oriented, Cooperative GI/Abdominal Exam: Soft, Non-Tender - Problem List & Annotations (1) 39 weeks gestation of SNOMED Code(s): 86409253 Code(s): Z3A.39 - 39 WEEKS GESTATION OF Status: Acute Current Visit: Yes (2) Normal labor SNOMED Code(s): 45592835 Code(s): O80 - ENCOUNTER FOR FULL-TERM UNCOMPLICATED DELIVERY; Z37.9 - OUTCOME OF DELIVERY, UNSPECIFIED Status: Acute Current Visit: Yes (3) Vaginal delivery SNOMED Code(s): 915473608 Code(s): O80 - ENCOUNTER FOR FULL-TERM UNCOMPLICATED DELIVERY Status: Acute Current Visit: Yes - Problem List Review Problem List Initiated/Reviewed/Updated: Yes - My Orders Last 24 Hours: My Active Orders 02/04/21 17:33 Heat Therapy [OM.PC] PRN 02/05/21 06:47 Ready for Discharge [RC] PER UNIT ROUTINE - Assessment Assessment:: PPD#2 - Plan Plan:: * Routine cares * breast feeding * Discharge home today
--- NOTE | 2021-02-05 07:30 | PCM.DCSUM1 ---
Discharge Summary - Discharge Data Discharge Date: 02/05/21 Discharge Disposition: Home, Self-Care 01 Condition: Good - Referral to Home Health Primary Care Physician: Madelin Elena MD - Discharge Diagnosis/Problem(s) (1) 39 weeks gestation of SNOMED Code(s): 79466571 ICD Code: Z3A.39 - 39 WEEKS GESTATION OF Status: Acute Current Visit: Yes (2) Normal labor SNOMED Code(s): 15723951 ICD Code: O80 - ENCOUNTER FOR FULL-TERM UNCOMPLICATED DELIVERY; Z37.9 - OUTCOME OF DELIVERY, UNSPECIFIED Status: Acute Current Visit: Yes (3) Vaginal delivery SNOMED Code(s): 232171633 ICD Code: O80 - ENCOUNTER FOR FULL-TERM UNCOMPLICATED DELIVERY Status: Acute Current Visit: Yes - Patient Summary/Data Complications: None Consults: None Recommended Follow-up Testing/Procedures: Follow up in 3 weeks for check Hospital Course: 25 y/o at 39 6/7 wks presented in labor. Progressed well to complete d ilation. Underwent an uncomplicated . See delivery note. did well and was discharged home on PPD#2 - Patient Instructions Diet: Regular Diet as Tolerated Activity: As Tolerated Activity, Other: Pelvic rest for 6 weeks Driving: May Drive Today Showering/Bathing: May Shower Showering/Bathing, Other: May Bathe Notify Provider of: Fever, Increased Pain, Swelling and Redness, Drainage, Nausea and/or Vomiting - Discharge Plan *PRESCRIPTION DRUG MONITORING PROGRAM REVIEWED*: No *COPY OF PRESCRIPTION DRUG MONITORING REPORT IN PATIENT DONTE: No Home Medications: Home Meds No122/Iron/Folic Acid [ Multi Tablet] 1 each PO DAILY 02/03/21 [History] Docusate Sodium [Colace] 100 mg PO BID PRN cap 02/05/21 [Rx] Ibuprofen [Motrin] 600 mg PO Q4H PRN tablet 02/05/21 [Rx] Referrals: Madelin Elena MD [Primary Care Provider] - (3 week for check ) - Discharge Summary/Plan Comment DC Time >30 min.: No - Patient Data Vitals - Most Recent: Last Vital Signs Temp 36.6 C 02/05/21 01:58 Pulse 87 02/05/21 01:58 Resp 14 02/05/21 01:58 BP 112/65 02/05/21 01:58 Pulse Ox 95 02/05/21 01:58 Weight - Most Recent: 84.323 kg Lab Results - Last 24 hrs: Laboratory Results - last 24 hr 02/03/21 Range/Units 04:10 Hepatitis C Antibody <0.1 (0.0-0.9) s/co ratio Med Orders - Current: Current Medications Acetaminophen (Acetaminophen 325 Mg Tab) 650 mg PO Q4H PRN PRN Reason: mild pain or fever Benzocaine/Menthol (Benzocaine/Menthol 20%-0.5% [place] 56 Gm Canister) 0 gm TOP ASDIRECTED PRN PRN Reason: Perineal Comfort Measure Last Admin: 02/03/21 17:58 Dose: 1 canister Documented by: Docusate Sodium (Docusate Sodium 100 Mg Cap) 100 mg PO BID PRN PRN Reason: Constipation Last Admin: 02/04/21 18:52 Dose: 100 mg Documented by: Ibuprofen (Ibuprofen 600 Mg Tab) 600 mg PO Q4H PRN PRN Reason: Mild pain or fever Last Admin: 02/05/21 06:49 Dose: 600 mg Documented by: Иван Carey (Иван Cherry Medicated Pads 40/Jar) 1 pad TOP ASDIRECTED PRN PRN Reason: Perineal Comfort Measure Last Admin: 02/03/21 17:58 Dose: 1 container Documented by: Discontinued Medications Bupivacaine HCl (Bupivacaine 0.25% 10 Ml Sdv) 10 ml .ROUTE .STK-MED ONE Stop: 02/03/21 12:01 Diphenhydramine HCl (Diphenhydramine 50 Mg/Ml Sdv) 25 mg IVPUSH Q6H PRN PRN Reason: pruritis Ephedrine Sulfate (Ephedrine 50 Mg/Ml Sdv) 5 mg IVPUSH ASDIRECTED PRN PRN Reason: Hypotension Fentanyl (Fentanyl 100 Mcg/2 Ml Sdv) 100 mcg EPIDUR Q3H PRN PRN Reason: Pain Last Admin: 02/03/21 09:19 Dose: 100 mcg Documented by: Fentanyl/Bupivacaine HCl (Bupivacaine/Fentanyl/Ns 100 Ml Bag) 100 ml EPIDUR ASDIRECTED PRN PRN Reason: Pain Last Admin: 02/03/21 09:18 Dose: 100 ml Documented by: Oxytocin/Lactated Ringer's (Pitocin In Lr 10 Units/1,000 Ml) 10 unit in 1,000 mls @ 500 mls/hr IV .CONTINUOUS DEJAH Lactated Ringer's (Ringers, Lactated) 1,000 mls @ 100 mls/hr IV ASDIRECTED DEJAH Last Admin: 02/03/21 10:31 Dose: 100 mls/hr Documented by: Oxytocin/Lactated Ringer's (Pitocin In Lr 10 Units/1,000 Ml) 10 unit in 1,000 mls @ 12 mls/hr IV TITRATE DEJAH; Protocol Last Admin: 02/03/21 14:32 Dose: 2 munits/min, 12 mls/hr Documented by: Misoprostol (Misoprostol 200 Mcg Tab) Confirm Administered Dose 600 mcg .ROUTE .[facility]-MED ONE Stop: 02/03/21 15:39 Last Admin: 02/03/21 15:38 Dose: 600 mcg Documented by: Nalbuphine HCl (Nalbuphine 10 Mg/1 Ml Vial) 10 mg IVPUSH Q2H PRN PRN Reason: Pain Ondansetron HCl (Ondansetron 4 Mg/2 Ml Sdv) 4 mg IVPUSH Q4H PRN PRN Reason: Nausea/Vomiting Last Admin: 02/03/21 08:28 Dose: 4 mg Documented by: Sodium Chloride (Sodium Chloride 0.9% 10 Ml Syringe) 10 ml FLUSH ASDIRECTED PRN PRN Reason: Keep Vein Open
[2021-02-05] MEDS: Docusate Sodium 100 MG Cap PO PRN (08:45)
== END 2021-02-05 10:20 | disposition home or self-care (01) | DRG 560 ==
LOC: JD.OBCHECK 02:57 → JD.OB 02:59 → JD.OBCHECK 03:26 → JD.OB 03:27 → OBSVTOIN 15:18 → JD.OB 15:19
PROVIDERS: ADMIT Obstetrics & Gynecology; ATTEND Obstetrics & Gynecology
PROC: 10E0XZZ Delivery of Products of Conception, External Approach (ICD-10-PCS; principal; 2021-02-03)
PROC: 10907ZC Drainage of Amniotic Fluid, Therapeutic from Products of Conception, Via Natural or Artificial Opening (ICD-10-PCS; 2021-02-03)
PROC: 0KQM0ZZ Repair Perineum Muscle, Open Approach (ICD-10-PCS; 2021-02-03)
PROC: 3E0R3BZ Introduction of Anesthetic Agent into Spinal Canal, Percutaneous Approach (ICD-10-PCS; 2021-02-03)
PROC: 00HU33Z Insertion of Infusion Device into Spinal Canal, Percutaneous Approach (ICD-10-PCS; 2021-02-03)
DX: O99.02 Anemia complicating childbirth (principal); O70.1 Second degree perineal laceration during delivery; O69.81X0 Labor and delivery complicated by cord around neck, without compression, not applicable or unspecified; D64.9 Anemia, unspecified; O99.62 Diseases of the digestive system complicating childbirth; K21.9 Gastro-esophageal reflux disease without esophagitis; Z20.822 Contact with and (suspected) exposure to COVID-19; Z3A.39 39 weeks gestation of pregnancy; Z91.010 Allergy to peanuts; Z37.0 Single live birth; Z91.018 Allergy to other foods
CPT/HCPCS: 01967; 36415; 51701; 51702; 59025; 59409; 85027; 86592; 86803; 86850; 86900; 86901; A9270-GY; J2405; J2590; J3010; J3490; J7120; U0002

== ENCOUNTER 2023-04-04 09:07 | Emergency (ER) | payer BC ==
[2023-04-04] MEDS ORDERED: Lactated Ringers 1,000 ML IV ONE (09:47)
[2023-04-04] MEDS ORDERED: Ondansetron 4 MG/2 ML SDV IVPUSH ONE (09:48)
== END 2023-04-04 10:15 | disposition other institution (70) ==
LOC: JD.ED 09:07
DX: O21.9 Vomiting of pregnancy, unspecified (principal); Z3A.16 16 weeks gestation of pregnancy; Z91.010 Allergy to peanuts
CPT/HCPCS: 71045; 71045-26; 99284

== ENCOUNTER 2023-05-26 12:27 | Inpatient (IN) | payer BC ==
[~2023-05-26 12:27] MED LIST: Lidocaine 1% 10 ML MDV ONE
[2023-05-26] MEDS ORDERED: Ondansetron 4 MG/2 ML SDV IVPUSH PRN (12:35)
[2023-05-26] MEDS ORDERED: Nalbuphine HCl 10 MG/ 1ML Amp IVPUSH PRN (12:35)
[2023-05-26] MEDS ORDERED: Lidocaine 1% 50 ML MDV INJECT PRN (12:35)
[2023-05-26] MEDS ORDERED: Lactated Ringers 1,000 ML IV SCH (12:45)
[2023-05-26 12:56] LABS: BASOPHILS PERCENT AUTO 0.2 % (0.0-1.0); EOSINOPHILS ABSOLUTE AUTO 0.2 K/mm3 (0.0-0.4); EOSINOPHILS PERCENT AUTO 1.9 % (0.0-6.0); HEMATOCRIT 33.9 % (37.0-47.0); HEMOGLOBIN 11.1 gm/dl (12.0-16.0); IMMATURE GRAN ABSOLUTE AUTO 0.06 K/mm3 (0.00-0.05); IMMATURE GRAN PERCENT AUTO 0.6 % (0.0-0.4); LYMPHOCYTES ABSOLUTE AUTO 1.7 K/mm3 (1.0-4.8); LYMPHOCYTES PERCENT AUTO 16.6 % (24.0-44.0); MEAN CORPUSCULAR HEMOGLOBIN 28.7 pg (28.0-32.0); MEAN CORPUSCULAR HGB CONC 32.7 g/dl (32.0-36.0); MEAN PLATELET VOLUME 10.7 fl (9.4-12.3); MONOCYTES ABSOLUTE AUTO 0.7 K/mm3 (0.0-0.8); NEUTROPHILS ABSOLUTE AUTO 7.7 K/mm3 (1.8-7.7); NEUTROPHILS PERCENT AUTO 73.7 % (41.0-71.0); PLATELET COUNT,PLT 307 K/mm3 (150-400); RED BLOOD CELL COUNT 3.87 M/mm3 (4.10-5.30); WHITE BLOOD CELL COUNT,WBC 10.43 K/mm3 (3.9-11.3)
[2023-05-26 12:57] LABS: MEAN CORPUSCULAR VOLUME 87.6 fl (83.0-99.0)
[2023-05-26] MEDS ORDERED: Oxytocin/Lactated Ringers 30 UNIT/500 ML BAG IV SCH (15:45)
[2023-05-26] MEDS ORDERED: ePHEDrine 50 MG/ML SDV IVPUSH PRN (17:18)
[2023-05-26] MEDS ORDERED: fentaNYL 100 MCG/2 ML SDV EPIDUR PRN (17:18)
[2023-05-26] MEDS ORDERED: Bupivacaine/fentaNYL/NS 100 ML Bag EPIDUR PRN (17:18)
[2023-05-26] MEDS ORDERED: diphenhydrAMINE 50 MG/ML SDV IVPUSH PRN (17:18)
[2023-05-27] MEDS ORDERED: Hydrocortisone Acetate 25 MG Supp RECTAL PRN (02:18)
[2023-05-27] MEDS ORDERED: Benzocaine/Menthol 20%-0.5% Spray 78 GM Cannister TOP PRN (02:18)
[2023-05-27] MEDS ORDERED: Witch Hazel Medicated Pads 40/Jar TOP PRN (02:18)
[2023-05-27] MEDS ORDERED: Magnesium Hydroxide 400 MG/5 ML Susp 30 ML Cup PO PRN (02:18)
[2023-05-27] MEDS ORDERED: Docusate Sodium 100 MG Cap PO PRN (02:18)
[2023-05-27] MEDS: Acetaminophen 325 MG Tab PO PRN ×2 (04:33→21:04)
[2023-05-27] MEDS: Ibuprofen 600 MG Tab PO PRN ×3 (08:48→21:03)
[2023-05-27] MEDS ORDERED: Prenatal Multivitamin with Calcium/Folic Acid/Iron Tab PO SCH (09:00)
[2023-05-28] MEDS: Ibuprofen 600 MG Tab PO PRN (03:08)
[2023-05-28] MEDS: Acetaminophen 325 MG Tab PO PRN (03:08)
== END 2023-05-28 09:00 | disposition home or self-care (01) | DRG 560 ==
LOC: JD.OBCHECK 12:27 → JD.OB 12:28 → JD.OBCHECK 12:39 → OBSVTOIN 23:49 → JD.OB 23:50
PROVIDERS: ADMIT Obstetrics & Gynecology; ATTEND Obstetrics & Gynecology
PROC: 10E0XZZ Delivery of Products of Conception, External Approach (ICD-10-PCS; principal; 2023-05-26)
PROC: 3E0R3BZ Introduction of Anesthetic Agent into Spinal Canal, Percutaneous Approach (ICD-10-PCS; 2023-05-26)
PROC: 00HU33Z Insertion of Infusion Device into Spinal Canal, Percutaneous Approach (ICD-10-PCS; 2023-05-26)
PROC: 0HQ9XZZ Repair Perineum Skin, External Approach (ICD-10-PCS; 2023-05-26)
DX: O42.02 Full-term premature rupture of membranes, onset of labor within 24 hours of rupture (principal); O99.02 Anemia complicating childbirth; O69.81X0 Labor and delivery complicated by cord around neck, without compression, not applicable or unspecified; Z37.0 Single live birth; O70.0 First degree perineal laceration during delivery; Z3A.39 39 weeks gestation of pregnancy; Z91.010 Allergy to peanuts
CPT/HCPCS: 36415; 51702; 59025; 59409; 85025; 86592; A9270-GY; J2405; J3010; J3490; J7120; J7999